=== PATIENT | female | born 1985 | race Caucasian/White ===

== ENCOUNTER 2017-09-04 23:18 | Emergency (ER) | payer OTHER ==
[~2017-09-04] VITALS: Ht 167.6 cm; Wt 79.3 kg
[~2017-09-04 23:18] MED LIST: ALBUTEROL SULF8.5 GM IH; AMOXICILLIN500 MG PO; AURALGAN14.8 ML LEFT EAR; BACTRIM,SEPT1 TABLET PO; CIPRO250 MG PO; FLEXERIL10 MG PO; IMODIUM MS REL1 EACH PO; KEFLEX500 MG PO; NAPROSYN500 MG PO; NAPROXEN500 MG PO; NO; NORCO 7.5/321 TABLET PO; OMNICEF300 MG PO; PHENERGAN-CODE120 ML PO; PRENATAL TABLE1 EAC3 PO; TESSALON200 MG PO; TRAMADOL HCL50 MG PO; TYLENOL REGULA325 MG PO; ULTRAM50 MG PO; VALIUM5 MG PO; Vicodin,Norco 5/325 PO; ZITHROMAX250 MG PO; ZOFRAN8 MG PO; flexeril; naproxen; oxyCODONE PO; tramadol
[2017-09-04 23:40] LABS: HEMATOCRIT 38.2 % (36.0-46.0); HEMOGLOBIN 13.7 G/DL (11.9-15.5); MCH 33.1 PG (29.0-34.0); MCHC 35.9 G/DL (30.0-36.0); MCV 92.3 FL (83-99); PLATELET COUNT 235 K/uL (156-360); RBC DIS.WIDTH-CV 11.9 % (11.8-14.6); RED BLOOD COUNT 4.14 M/uL (3.80-5.20); WHITE BLOOD COUNT 15.3 K/uL (4.1-10.2)
[2017-09-04 23:53] LABS: ALBUMIN 3.9 g/dL (3.2-4.8); CHLORIDE 108 mEq/L (99-109); SODIUM 138 mEq/L (136-147)
[2017-09-04 23:55] LABS: GLUCOSE 92 mg/dL (70-99); TOTAL PROTEIN 6.6 g/dL (6.4-8.3)
[2017-09-04 23:57] LABS: TOTAL BILIRUBIN 0.4 mg/dL (0.0-1.0)
[2017-09-04 23:59] LABS: ALKALINE PHOSPHATASE 78 IU/L (3-129); CREATININE 0.7 mg/dL (0.6-1.3); GFR ESTIMATE (CALCULATED) > 59 mL/min/
[2017-09-05] LABS: UREA NITROGEN (BUN) 6 mg/dL (9-23)
[2017-09-05 00:01] LABS: AST (GOT) 11 IU/L (2-34)
[2017-09-05 00:02] LABS: ALT (GPT) 9 IU/L (3-49)
[2017-09-05 00:35] LABS: QUANTITATIVE HCG 60680.5 MIU/ML
[2017-09-05 01:22] LABS: APPEARANCE CLEAR ((CLEAR)); BILIRUBIN NEGATIVE; BLOOD NEGATIVE; COLOR STRAW ((YELLOW)); GLUCOSE (STRIP) NEGATIVE; KETONES NEGATIVE; LEUKOCYTES NEGATIVE; NITRITE NEGATIVE; PROTEIN (STRIP) NEGATIVE; SPECIFIC GRAVITY 1.006 (1.000-1.030); UCUL ADDED? NO; UROBILINOGEN 0.2 MG/DL (0.2-1.0)
[2017-09-05 02:54] VITALS: BP 129/82
[2017-09-05 02:58] LABS: LIPASE 116 U/L (1.0-51.0)
[2017-09-05] MEDS ORDERED: PRENATAL VITAM1 EAC7 PO (03:05)
[2017-09-05] MEDS ORDERED: ZOFRAN ODT8 MG PO (03:05)
== END 2017-09-05 03:47 | disposition home or self-care (01) ==
LOC: EME 23:18
DX: O20.0 Threatened abortion (principal); O21.9 Vomiting of pregnancy, unspecified; O99.331 Smoking (tobacco) complicating pregnancy, first trimester; F17.200 Nicotine dependence, unspecified, uncomplicated; Z3A.01 Less than 8 weeks gestation of pregnancy; O34.81 Maternal care for other abnormalities of pelvic organs, first trimester; N83.209 Unspecified ovarian cyst, unspecified side
CPT/HCPCS: 76801; 80053; 81003; 83690; 84702; 85027; 99281; 99284

== ENCOUNTER 2017-10-28 12:38 | Emergency (ER) | payer OTHER ==
[~2017-10-28] VITALS: Ht 165.1 cm; Wt 80.7 kg
[~2017-10-28 12:38] MED LIST changes: +PRENATAL VITAM1 EAC7 PO; +ZOFRAN ODT8 MG PO
[2017-10-28 14:24] LABS: HEMATOCRIT 31.3 % (36.0-46.0); HEMOGLOBIN 11.3 G/DL (11.9-15.5); MCH 33.3 PG (29.0-34.0); MCHC 36.1 G/DL (30.0-36.0); MCV 92.3 FL (83-99); PLATELET COUNT 204 K/uL (156-360); RBC DIS.WIDTH-CV 12.1 % (11.8-14.6); RBC DIS.WIDTH-SD 40.9 % (39-53); RED BLOOD COUNT 3.39 M/uL (3.80-5.20); WHITE BLOOD COUNT 12.2 K/uL (4.1-10.2)
[2017-10-28 14:35] LABS: ALBUMIN 3.4 g/dL (3.2-4.8); CHLORIDE 112 mEq/L (99-109); POTASSIUM 3.9 mEq/L (3.7-5.4); SODIUM 136 mEq/L (136-147)
[2017-10-28 14:37] LABS: GLUCOSE 92 mg/dL (70-99)
[2017-10-28 14:39] LABS: TOTAL BILIRUBIN 0.2 mg/dL (0.0-1.0)
[2017-10-28 14:41] LABS: ALKALINE PHOSPHATASE 74 IU/L (3-129); CREATININE 0.6 mg/dL (0.6-1.3); GFR ESTIMATE (CALCULATED) > 59 mL/min/
[2017-10-28 14:42] LABS: AST (GOT) 12 IU/L (2-34); UREA NITROGEN (BUN) 6 mg/dL (9-23)
[2017-10-28 14:44] LABS: ALT (GPT) 8 IU/L (3-49)
[2017-10-28 14:48] LABS: BILIRUBIN NEGATIVE; BLOOD NEGATIVE; COLOR YELLOW ((YELLOW)); GLUCOSE (STRIP) NEGATIVE; KETONES NEGATIVE; LEUKOCYTES TRACE; NITRITE NEGATIVE; PROTEIN (STRIP) NEGATIVE; SPECIFIC GRAVITY 1.015 (1.000-1.030); UROBILINOGEN 0.2 MG/DL (0.2-1.0)
[2017-10-28 14:49] LABS: APPEARANCE SL.HAZY ((CLEAR))
[2017-10-28 14:52] LABS: BACTERIA RARE /HPF; EPITHELIAL CELLS 2+ /HPF; MUCUS TRACE /LPF; RED BLOOD CELLS 0-5 /HPF (0-5); UCUL ADDED? NO; WHITE BLOOD CELLS 0-5 /HPF (0-5)
[2017-10-28 15:12] VITALS: BP 122/76
== END 2017-10-28 15:14 | disposition home or self-care (01) ==
LOC: EME 12:38
PROVIDERS: Nurse Practitioner Family
DX: O21.9 Vomiting of pregnancy, unspecified (principal); O99.282 Endocrine, nutritional and metabolic diseases complicating pregnancy, second trimester; E86.0 Dehydration; O99.332 Smoking (tobacco) complicating pregnancy, second trimester; F17.210 Nicotine dependence, cigarettes, uncomplicated; Z3A.15 15 weeks gestation of pregnancy; Z87.42 Personal history of other diseases of the female genital tract; Z90.49 Acquired absence of other specified parts of digestive tract
CPT/HCPCS: 80053; 81003; 85027; 99281; 99284